=== PATIENT | female | born 2000 | race Caucasian/White ===

== ENCOUNTER 2021-06-17 17:02 | Emergency (ER) | payer OTHER ==
--- NOTE | 2021-06-17 17:23 | ED Physician Documentation ---
PD HPI LOWER EXT INJURY - Stated complaint Stated Complaint: R CALF PX - Chief complaint Chief Complaint: Ext Problem - History obtained from History obtained from: Patient - History of Present Illness PD HPI LOW EXT INJURY LOCATION: Right, Calf Type of injury: No: Fall, Twist Where injury occurred: Home (She noted onset of right calf pain today which has continued through the day. No noted injury. She had tonsillectomy 2 days ago and her instructions caution for watching for symptoms like that. Here for eval.) Timing - onset: Today Timing - duration: Days (1) Timing - details: Gradual onset, Still present Worsened by: Moving (walking causes pain mid calf area), Palpating Associated symptoms: No: Weakness, Numbness, Swelling Similar symptoms before: Has not had sx before Recently seen: Surgery (She had tonsillectomy done outpatient without complications 2 days ago. Still having some sore throat. Some nausea associated with her medications.) Review of Systems Constitutional: denies: Fever, Chills Nose: denies: Rhinorrhea / runny nose, Congestion Throat: reports: Sore throat (c/w post tonsillectomy. Using pain meds and has some nausea with that. Not improved with Zofran.) Cardiac: denies: Chest pain / pressure Respiratory: denies: Dyspnea : denies: Control Skin: denies: Rash, Lesions PD PAST MEDICAL HISTORY - Past Medical History Cardiovascular: None Respiratory: None Endocrine/Autoimmune: None - Present Medications Home Medications: Ambulatory Orders Medication Instructions Recorded Confirmed Metoclopramide HCl [Metoclopramide 10 mg PO Q6H PRN #10 tab 06/17/21 HCl Odt] - Allergies Allergies/Adverse Reactions: Allergies Allergy/AdvReac Type Severity Reaction Status Date / Time doxycycline Allergy Nausea Verified 06/17/21 17:06 - Living Situation Living Situation: reports: With family Living Arrangement: reports: At home - Social History Does the pt smoke?: No Smoking Status: Never smoker Does the pt drink ETOH?: No Does the pt have substance abuse?: No PD ED PE NORMAL - Vitals Vital signs reviewed: Yes - General General: Alert and oriented X 3, No acute distress, Well developed/nourished - HEENT HEENT: Other (The prior tonsil area shows postoperative changes with some eschar. No clots. No local swelling.) - Cardiac Cardiac: RRR, No murmur - Respiratory Respiratory: Clear bilaterally - Derm Derm: Normal color, Warm and dry, No rash - Extremities Extremities: No edema, Other (There is some mild tenderness in the right mid lateral calf. No redness or obvious swelling. No palpable deformity. There is no edema in the ankle or foot. Good pulses in the foot.) - Neuro Neuro: Alert and oriented X 3, No motor deficit, Normal speech Results - Vitals Vitals: Oxygen O2 Source Room air - Rads (name of study) duplex right leg Radiology: Prelim report reviewed (no DVT), See rad report PD MEDICAL DECISION MAKING - ED course Complexity details: reviewed results (no DVT), considered differential (Low risk for DVT but is still recent post op and having unexplained calf pain. Can get U/S. ), d/w patient Departure - Departure Disposition: 01 Home, Self Care Clinical Impression: Right calf pain, Status post tonsillectomy, Nausea Condition: Stable Record reviewed to determine appropriate education?: Yes Instructions: ED Strain Muscle Ext Prescriptions: Metoclopramide HCl [Metoclopramide HCl Odt] 10 mg PO Q6H PRN #10 tab PRN Reason: Nausea / Vomiting Comments: Continue usual medications. You can add metoclopramide orally to help with nausea instead of the ondansetron. See if that works better. Your ultrasound is negative for blood clots. Presume a muscle strain or such. Tylenol or anti-inflammatories to help with that. Normal activity. Discharge Date/Time: 06/17/21 19:29
[2021-06-17] MEDS ORDERED: PROMETHAZINE 25 MG TABLET PO STA (17:35)
[2021-06-17] MEDS ORDERED: IBUPROFEN 100 MG/5 ML UDC PO STA (18:40)
[2021-06-17] MEDS ORDERED: diphenhydrAMINE ELIXIR 25 MG/10 ML UDC PO STA (18:56)
[2021-06-17] MEDS ORDERED: DROPERIDOL 5 MG/2 ML VIAL IM STA (18:57)
--- NOTE | 2021-06-17 19:02 | Ultrasound Report ---
PROCEDURE: Duplex Ext Veins Right INDICATIONS: right calf vein; recent tonsillectomy TECHNIQUE: Real-time imaging, as well as color and pulse Doppler interrogation, were performed of the lower extr emity deep veins from the inguinal ligament to the popliteal fossa. COMPARISON: None. FINDINGS: The deep veins are normally compressible, and free of intraluminal thrombus. Color and pu lse Doppler demonstrate normal phasic intraluminal flow. There is normal augmentation response to di stal compression maneuver. IMPRESSION: No sonographic evidence of deep venous thrombosis in the right lower extremity. Reviewed by: Douglas Boudreaux MD on 06/17/2021 7:01 PM PDT Approved by: Douglas Boudreaux MD on 06/17/2021 7:01 PM PDT Station ID: [id number]
[2021-06-17 19:29] VITALS: BP 129/63
== END 2021-06-17 19:29 | disposition home or self-care (01) ==
LOC: ED 17:02
DX: M79.661 Pain in right lower leg (principal); R11.0 Nausea; Z98.890 Other specified postprocedural states
CPT/HCPCS: 93971; 96372; 99283; 99284; A9270; Q0169